=== PATIENT | female | born 2000 | race Two or more races ===

== ENCOUNTER 2022-07-13 11:19 | Inpatient (IN) ==
[2022-07-13 12:16] LABS: Basophils # (auto) 0.06 K/uL (0-0.2); Basophils % (auto) 0.3 %; Eosinophils # (auto) 0.01 K/uL (0-0.50); Eosinophils % (auto) 0.1 %; Hematocrit (blood only) 34.6 % (37.0-47.0); Hemoglobin 11.6 g/dl (12.0-16.0); Immature Granulocytes # (auto) 0.14 K/uL (0.01-0.20); Immature Granulocytes % (auto) 0.8 %; Lymphocytes # (auto) 1.26 K/uL (1.2-3.4); Lymphocytes % (auto) 7.1 %; Mean Corpuscular Hgb Conc 33.5 g/dL (32.0-36.0); Mean Corpuscular Volume 80.5 fL (80.0-100.0); Monocytes # (auto) 1.67 K/uL (0.11-0.59); Monocytes % (auto) 9.4 %; Neutrophils # (auto) 14.66 K/uL (1.40-6.50); Neutrophils % (auto) 82.3 %; Platelet Count 155 K/uL (130-400); RDW Coefficient of Variation 13.2 % (11.5-14.5); RDW Standard Deviation 38.5 fL (36.4-46.3)
[2022-07-13 12:23] LABS: Albumin Globulin Ratio 0.9 (0.9-2); Albumin Level 3.8 gm/dl (3.4-5.0); BUN Creatinine Ratio 13.9 (10-20); Bilirubin,Total 2.4 mg/dl (0.2-1.0); Calcium 9.2 mg/dl (8.5-10.1); Creatinine Clr Calc Pharmacy 62.8 ml/min; Est GFR (African American) 91.5 ml/min; Globulin 4.2 gm/dl (2.5-4.0); Potassium 3.5 mmol/L (3.5-5.1)
--- NOTE | 2022-07-13 13:22 | Emergency Department Note ---
History of Present Illness General Chief complaint: Nausea Stated complaint: NAUSEA, VOMITING, FEVER Time Seen by Provider: 07/13/22 13:20 History of Present Illness Maximum Pain Intensity: 7 This 21-year-old female patient presents to the emergency department with a male friend for evaluation of nausea, vomiting, and intermittent fever for the past week. She saw [facility] and tested negative for COVID, flu, and RSV and was given something for the nausea, but it is not working. Fevers up to 39 C max per patient. Has been taking Tylenol and Zofran for the symptoms . She has been having a dry intermittent cough. Denies chest pain. Having generalized abdominal pain as well rated as 7/10. Has some intermittent burning with urination and abnormal smell of her urine recently. Denies any diarrhea. No known ill contacts. Has had 3 COVID vaccines. No flu vaccines. Childhood immunizations are up to date. She was in [facility], [place], and [facility] over winter break. Home Medications Medication Instructions Recorded Confirmed Type No Known Home Medications 07/13/22 07/13/22 History Allergies Allergy/AdvReac Type Severity Reaction Status Date / Time No Known Allergies Allergy Verified 07/13/22 13:29 Past Med/Surg History Medical History No pertinent past medical history Surgical History No pertinent past surgical history Social History Smoking Status: Never smoker Hx Alcohol Use: No Hx Substance Use: No Preferred Language: Sinhala Communication Ability: Effective Battery [employer] Aluminum Required: No Beliefs That Will Affect Care: Cultural Cultural Beliefs: does not eat pork Current Living Situation: Other Current Living Situation Comment: student Other Information That Helps Us Care for You: No Feels Safe at Home: Yes Safety Concerns: Feels Safe At This Time Assistive Devices: Glasses Review of Systems See HPI for pertinent positives & negatives. Physical Exam Vital Signs Vital Signs - 24 hr 07/13/22 11:34 07/13/22 13:26 07/13/22 14:30 Temperature 36.7 C 37.9 C H Temperature Source Temporal Artery Scan Oral Pulse Rate 120 H 124 H Pulse Rate [Apical] 113 H Pulse Rhythm [Apical] Regular Pulse Strength [Apical] Normal Respiratory Rate 18 24 24 Respiratory Effort / Characteristics Non-Labored Respiratory Depth Normal Respiratory Pattern Regular Blood Pressure 119/85 Blood Pressure [Right Arm] 111/75 Blood Pressure Mean 96 Blood Pressure Mean [Right Arm] 87 Pulse Oximetry 97 98 Oxygen Delivery Method Room Air Room Air Sepsis Recent Fever Within 48 Hours No Sepsis New/Unexplained Change in Mental Status No Sepsis Action Taken by Nursing No Action Required 07/13/22 14:35 07/13/22 14:35 07/13/22 14:40 Temperature Temperature Source Pulse Rate 119 H 119 H Pulse Rate [Apical] Pulse Rhythm [Apical] Pulse Strength [Apical] Respiratory Rate 25 H 24 Respiratory Effort / Characteristics Respiratory Depth Respiratory Pattern Blood Pressure 116/80 Blood Pressure [Right Arm] Blood Pressure Mean 92 Blood Pressure Mean [Right Arm] Pulse Oximetry Oxygen Delivery Method Sepsis Recent Fever Within 48 Hours Sepsis New/Unexplained Change in Mental Status Sepsis Action Taken by Nursing 07/13/22 14:50 07/13/22 15:00 07/13/22 15:10 Temperature Temperature Source Pulse Rate 121 H 118 H 122 H Pulse Rate [Apical] Pulse Rhythm [Apical] Pulse Strength [Apical] Respiratory Rate 24 18 24 Respiratory Effort / Characteristics Respiratory Depth Respiratory Pattern Blood Pressure Blood Pressure [Right Arm] Blood Pressure Mean Blood Pressure Mean [Right Arm] Pulse Oximetry Oxygen Delivery Method Sepsis Recent Fever Within 48 Hours Sepsis New/Unexplained Change in Mental Status Sepsis Action Taken by Nursing 07/13/22 15:22 07/13/22 15:30 07/13/22 15:30 Temperature Temperature Source Pulse Rate 120 H 111 H Pulse Rate [Apical] Pulse Rhythm [Apical] Pulse Strength [Apical] Respiratory Rate 24 22 Respiratory Effort / Characteristics Respiratory Depth Respiratory Pattern Blood Pressure 109/78 Blood Pressure [Right Arm] Blood Pressure Mean 88 Blood Pressure Mean [Right Arm] Pulse Oximetry Oxygen Delivery Method Sepsis Recent Fever Within 48 Hours Sepsis New/Unexplained Change in Mental Status Sepsis Action Taken by Nursing 07/13/22 15:40 07/13/22 15:50 07/13/22 16:00 Temperature Temperature Source Pulse Rate 108 H 116 H 110 H Pulse Rate [Apical] Pulse Rhythm [Apical] Pulse Strength [Apical] Respiratory Rate 23 21 24 Respiratory Effort / Characteristics Respiratory Depth Respiratory Pattern Blood Pressure Blood Pressure [Right Arm] Blood Pressure Mean Blood Pressure Mean [Right Arm] Pulse Oximetry Oxygen Delivery Method Sepsis Recent Fever Within 48 Hours Sepsis New/Unexplained Change in Mental Status Sepsis Action Taken by Nursing 07/13/22 16:10 Temperature Temperature Source Pulse Rate 109 H Pulse Rate [Apical] Pulse Rhythm [Apical] Pulse Strength [Apical] Respiratory Rate 22 Respiratory Effort / Characteristics Respiratory Depth Respiratory Pattern Blood Pressure Blood Pressure [Right Arm] Blood Pressure Mean Blood Pressure Mean [Right Arm] Pulse Oximetry Oxygen Delivery Method Sepsis Recent Fever Within 48 Hours Sepsis New/Unexplained Change in Mental Status Sepsis Action Taken by Nursing Vital Signs: Vitals are noted on the nurse's note and reviewed by myself. GENERAL: Appears ill, but non toxic in appearance and in no acute distress. SKIN: The skin was without obvious rashes, erythema, edema, or bruising. Capillary reflex less than 2 seconds. HEAD: Normocephalic, atraumatic. EARS: External auditory canals clear, tympanic membrane pearly snowden without erythema or effusion. No tragus tenderness. No mastoid tenderness. EYES: Pupils equal round and reactive to light and accommodation. Conjunctivae without injection, sclerae without icterus. Extraocular movements intact. NOSE: Patent, turbinates inflamed with no discharge. No sinus tenderness. MOUTH: Tongue is dry, but other mucous membranes are still moist. Airway patent, uvula midline. Tonsils are not enlarged and not erythematous without exudate. Pharynx without postnasal drip. No evidence for peritonsillar abscess. NECK: Supple without nuchal rigidity. No lymphadenopathy. Negative Kernig and Brudzinski. HEART: Regular rate and rhythm without murmurs gallops or rubs. LUNGS: Clear to auscultation bilaterally without wheezes, rales or rhonchi. No accessory muscle use or retractions. ABDOMEN: Positive bowel sounds x 4. Normal tympanic percussion. Soft, diffusely tender to palpation, without masses or organomegaly. Positive CVA tenderness bilaterally. No focal right lower quadrant or left lower quadrant tenderness. No guarding, rebound tenderness, or rigidity. NEURO: Patient was alert and oriented to person place and time. Course Administered Medications Acetaminophen (Acetaminophen 325 Mg Tab) 650 mg PO Q4H PRN PRN Reason: Pain or fever Stop: 08/12/22 19:25 Last Admin: 07/13/22 19:51 Dose: 650 mg Documented By: ELAYNE Sodium Chloride (Nss 1000ml) 1,000 mls @ 125 mls/hr IV .Q8H DEREJE Stop: 07/14/22 19:08 Last Admin: 07/13/22 19:22 Dose: 125 mls/hr Documented By: ELAYNE Discontinued Medications Sodium Chloride (Nss 1000ml) 1,000 mls @ 999 mls/hr IV .Q1H1M ONE Stop: 07/13/22 14:47 Last Infusion: 07/13/22 15:30 Dose: 0 mls/hr Documented By: Admin: 07/13/22 14:00 Dose: 999 mls/hr Documented By: NELY Sodium Chloride (Nss 1000ml) 1,000 mls @ 999 mls/hr IV .Q1H1M ONE Stop: 07/13/22 15:50 Last Infusion: 07/13/22 16:20 Dose: 0 mls/hr Documented By: Admin: 07/13/22 15:15 Dose: 999 mls/hr Documented By: NELY Ceftriaxone Sodium 1,000 mg/ (Dextrose) 50 mls @ 100 mls/hr IV NOW STA Stop: 07/13/22 15:45 Last Infusion: 07/13/22 16:20 Dose: 0 mls/hr Documented By: Admin: 07/13/22 15:50 Dose: 100 mls/hr Documented By: NELY Ioversol (Optiray 350 100ml) 94 ml IV ONCE ONE Stop: 07/13/22 14:19 Last Admin: 07/13/22 14:18 Dose: 94 ml Documented By: YUVAL Ketorolac Tromethamine (Ketorolac Tromethamine 15 Mg/Ml Vial) 10 mg IV NOW ONE Stop: 07/13/22 13:48 Last Admin: 07/13/22 14:31 Dose: 10 mg Documented By: NELY Ondansetron HCl (Ondansetron Inj 2 Mg/Ml 2 Ml Vial) 4 mg IV NOW STA Stop: 07/13/22 13:48 Last Admin: 07/13/22 14:31 Dose: 4 mg Documented By: NELY Medical Decision Making Differential Diagnosis Differential diagnosis includes Influenza, RSV, COVID, viral syndrome, otitis media, otitis externa, pharyngitis, strep throat, pneumonia, meningitis, urinary tract infection, pyelonephritis, cellulitis, abscess, sepsis, bacteremia, as well as other pathologies. Laboratory Data Attestation: I reviewed the patient's lab results. 07/13/22 11:52 07/13/22 11:52 Lab Results 07/13/22 07/13/22 07/13/22 Range/Units 11:52 11:52 11:52 WBC 17.80 H (4.8-10.8) K/ul RBC 4.30 (4.20-5.40) M/uL Hgb 11.6 L (12.0-16.0) g/dl Hct 34.6 L (37.0-47.0) % MCV 80.5 (80.0-100.0) fL MCH 27.0 (25.0-34.0) pg MCHC 33.5 (32.0-36.0) g/dL RDW Std Deviation 38.5 (36.4-46.3) fL RDW Coeff of Amy 13.2 (11.5-14.5) % Plt Count 155 (130-400) K/uL MPV 11.0 (9.4-12.4) fL Immature Gran % (Auto) 0.8 % Neut % (Auto) 82.3 % Lymph % (Auto) 7.1 % [facility] % (Auto) 9.4 % Eos % (Auto) 0.1 % Baso % (Auto) 0.3 % Neut # (Auto) 14.66 H (1.40-6.50) K/uL Lymph # (Auto) 1.26 (1.2-3.4) K/uL [facility] # (Auto) 1.67 H (0.11-0.59) K/uL Eos # (Auto) 0.01 (0-0.50) K/uL Baso # (Auto) 0.06 (0-0.2) K/uL Immature Gran # (Auto) 0.14 (0.01-0.20) K/uL Sodium 130 L (136-145) mmol/L Potassium 3.5 (3.5-5.1) mmol/L Chloride 95 L (98-107) mmol/L Carbon Dioxide 26 (21-32) mmol/L Anion Gap 9 (3-11) BUN 14 (6-23) mg/dl Creatinine 1.01 (0.6-1.2) mg/dl Est Cr Clr Drug Dosing 62.8 ml/min Est GFR ( Amer) 91.5 ml/min Est GFR (Non-Af Amer) 79.0 ml/min BUN/Creatinine Ratio 13.9 (10-20) Glucose 125 H (70-99(Fasting)) mg/dl Lactate (0.4-2.0) mmol/L Calcium 9.2 (8.5-10.1) mg/dl Total Bilirubin 2.4 H (0.2-1.0) mg/dl Direct Bilirubin 1.0 H Cancelled (0-0.2) mg/dl AST 28 (13-39) U/L ALT 21 (7-52) U/L Alkaline Phosphatase 87 (34-104) U/L Total Protein 8.0 (6.0-8.3) gm/dl Albumin 3.8 (3.4-5.0) gm/dl Globulin 4.2 H (2.5-4.0) gm/dl Albumin/Globulin Ratio 0.9 (0.9-2) Lipase 54 (11-82) U/L Procalcitonin (0-0.5) ng/ml HCG, Qual (Negative) Urine Color Urine Appearance (Clear) Urine pH (4.5-7.5) Ur Specific [place] (1.000-1.030) Urine Protein (Negative) Urine Glucose (UA) (Negative) Urine Ketones (Negative) Urine Blood (Negative) Urine Nitrite (Negative) Urine Bilirubin (Negative) Urine Urobilinogen (Negative) Ur Leukocyte Esterase (Negative) Urine WBC (Auto) (0-5) /hpf Urine RBC (Auto) (0-4) /hpf U Hyaline Cast (Auto) (0-5) /lpf U Epithel Cells (Auto) (0-5) /lpf Urine Bacteria (Auto) (Negative) SARS-CoV-2, RNA, NAAT (NEGATIVE) 07/13/22 07/13/22 07/13/22 Range/Units 11:52 15:20 15:27 WBC (4.8-10.8) K/ul RBC (4.20-5.40) M/uL Hgb (12.0-16.0) g/dl Hct (37.0-47.0) % MCV (80.0-100.0) fL MCH (25.0-34.0) pg MCHC (32.0-36.0) g/dL RDW Std Deviation (36.4-46.3) fL RDW Coeff of Amy (11.5-14.5) % Plt Count (130-400) K/uL MPV (9.4-12.4) fL Immature Gran % (Auto) % Neut % (Auto) % Lymph % (Auto) % [facility] [place] [facility] % (Auto) % Eos % (Auto) % Baso % (Auto) % Neut # (Auto) (1.40-6.50) K/uL Lymph # (Auto) (1.2-3.4) K/uL [facility] [place] # (Auto) (0.11-0.59) K/uL Eos # (Auto) (0-0.50) K/uL Baso # (Auto) (0-0.2) K/uL Immature Gran # (Auto) (0.01-0.20) K/uL Sodium (136-145) mmol/L Potassium (3.5-5.1) mmol/L Chloride (98-107) mmol/L Carbon Dioxide (21-32) mmol/L Anion Gap (3-11) BUN (6-23) mg/dl Creatinine (0.6-1.2) mg/dl Est Cr Clr Drug Dosing ml/min Est GFR ( Amer) ml/min Est GFR (Non-Af Amer) ml/min BUN/Creatinine Ratio (10-20) Glucose (70-99(Fasting)) mg/dl Lactate (0.4-2.0) mmol/L Calcium (8.5-10.1) mg/dl Total Bilirubin (0.2-1.0) mg/dl Direct Bilirubin (0-0.2) mg/dl AST (13-39) U/L ALT (7-52) U/L Alkaline Phosphatase (34-104) U/L Total Protein (6.0-8.3) gm/dl Albumin (3.4-5.0) gm/dl Globulin (2.5-4.0) gm/dl Albumin/Globulin Ratio (0.9-2) Lipase (11-82) U/L Procalcitonin (0-0.5) ng/ml HCG, Qual Negative (Negative) Urine Color Yellow Urine Appearance Clear (Clear) Urine pH 6.0 (4.5-7.5) Ur Specific [place] > 1.045 H (1.000-1.030) Urine Protein 1+ H (Negative) Urine Glucose (UA) Negative (Negative) Urine Ketones Trace H (Negative) Urine Blood 1+ H (Negative) Urine Nitrite Positive A (Negative) Urine Bilirubin Negative (Negative) Urine Urobilinogen Positive H (Negative) Ur Leukocyte Esterase 1+ H (Negative) Urine WBC (Auto) >30 H (0-5) /hpf Urine RBC (Auto) 5-10 H (0-4) /hpf U Hyaline Cast (Auto) 0 (0-5) /lpf U Epithel Cells (Auto) 10-20 H (0-5) /lpf Urine Bacteria (Auto) 2+ H (Negative) SARS-CoV-2, RNA, NAAT NEGATIVE (NEGATIVE) 07/13/22 07/13/22 Range/Units 15:36 15:36 WBC (4.8-10.8) K/ul RBC (4.20-5.40) M/uL Hgb (12.0-16.0) g/dl Hct (37.0-47.0) % MCV (80.0-100.0) fL MCH (25.0-34.0) pg MCHC (32.0-36.0) g/dL RDW Std Deviation (36.4-46.3) fL RDW Coeff of Amy (11.5-14.5) % Plt Count (130-400) K/uL MPV (9.4-12.4) fL Immature Gran % (Auto) % Neut % (Auto) % Lymph % (Auto) % [facility] [place] [facility] % (Auto) % Eos % (Auto) % Baso % (Auto) % Neut # (Auto) (1.40-6.50) K/uL Lymph # (Auto) (1.2-3.4) K/uL [facility] [place] [facility] # (Auto) (0.11-0.59) K/uL Eos # (Auto) (0-0.50) K/uL Baso # (Auto) (0-0.2) K/uL Immature Gran # (Auto) (0.01-0.20) K/uL Sodium (136-145) mmol/L Potassium (3.5-5.1) mmol/L Chloride (98-107) mmol/L Carbon Dioxide (21-32) mmol/L Anion Gap (3-11) BUN (6-23) mg/dl Creatinine (0.6-1.2) mg/dl Est Cr Clr Drug Dosing ml/min Est GFR ( Amer) ml/min Est GFR (Non-Af Amer) ml/min BUN/Creatinine Ratio (10-20) Glucose (70-99(Fasting)) mg/dl Lactate 1.0 (0.4-2.0) mmol/L Calcium (8.5-10.1) mg/dl Total Bilirubin (0.2-1.0) mg/dl Direct Bilirubin (0-0.2) mg/dl AST (13-39) U/L ALT (7-52) U/L Alkaline Phosphatase (34-104) U/L Total Protein (6.0-8.3) gm/dl Albumin (3.4-5.0) gm/dl Globulin (2.5-4.0) gm/dl Albumin/Globulin Ratio (0.9-2) Lipase (11-82) U/L Procalcitonin 38.26 H (0-0.5) ng/ml HCG, Qual (Negative) Urine Color Urine Appearance (Clear) Urine pH (4.5-7.5) Ur Specific [place] (1.000-1.030) Urine Protein (Negative) Urine Glucose (UA) (Negative) Urine Ketones (Negative) Urine Blood (Negative) Urine Nitrite (Negative) Urine Bilirubin (Negative) Urine Urobilinogen (Negative) Ur Leukocyte Esterase (Negative) Urine WBC (Auto) (0-5) /hpf Urine RBC (Auto) (0-4) /hpf U Hyaline Cast (Auto) (0-5) /lpf U Epithel Cells (Auto) (0-5) /lpf Urine Bacteria (Auto) (Negative) SARS-CoV-2, RNA, NAAT (NEGATIVE) Imaging Data Radiologist's Impression: Abdomen/Pelvis CT 07/13/22 13:47 CT abd pelvis IV con only CLINICAL HISTORY: abdominal pain, N/V, fever TECHNIQUE: Helical axial images of the abdomen and pelvis were obtained and displayed. Automated dose lowering techniques and/or adjustment according to patient size were utilized for this exam. This exam was performed with intravenous contrast. CT DOSE: 266.49 mGy.cm COMPARISON: None available at the time of this dictation. FINDINGS: Lower chest: No acute abnormality. Liver: Hepatic steatosis is noted. Gallbladder and biliary tree: No calcified gallstones. Normal caliber wall. No intra- or extrahepatic biliary ductal dilation. Pancreas: Unremarkable, no focal lesions. Spleen: Unremarkable. Adrenals: Unremarkable. Kidneys and ureters: Wedge-shaped hypoenhancing lesions are seen in the left greater than right kidneys. Bladder: Unremarkable. Reproductive organs: A large right fat-containing adnexal lesion with some calcifications is seen compatible with dermoid cyst. A smaller lesion is seen on the left. Bowel: Unremarkable. Lymph nodes Retroperitoneal: Unremarkable. Pelvic: Unremarkable. Mesenteric: Subcentimeter lymph nodes are noted. Peritoneum: Normal. Vessels: Unremarkable. Abdominal wall: Unremarkable. Bones: Unremarkable. IMPRESSION: Wedge-shaped hypodensities in the bilateral kidneys are concerning for pyelonephritis. ACT 112: Negative or not required by law. Electronically signed by: Colt Teixeira M.D. 07/13/2022 3:02 PM Chest X-Ray 07/13/22 15:28 XR chest 1V portable HISTORY: cough, fever COMPARISON: None. FINDINGS: The lungs are clear. Cardiac silhouette is normal in size. No pleural effusions. No pneumothorax. IMPRESSION: No acute process. ACT 112: Negative or not required by law. Electronically signed by: Peterson Carter M.D. 07/13/2022 3:46 PM MDM Narrative I examined the patient. An IV lock was placed and labs were drawn. She was given Toradol 10 mg IV and Zofran 4 mg IV. She was given a total of 2 L normal saline solution bolus in the ER. Previous work-up at [facility] was unremarkable per patient and she was given Zofran without improvement at home. She is ill- appearing, but nontoxic in appearance on exam. She was tachycardic during her stay with improvement after the IV fluids, but not resolution of the tachycardia. Initially the patient was afebrile, but did develop a fever prior to admission. White blood cell count elevated at 17.80 with hemoglobin of 11.6. Sodium 130, glucose 125, total bilirubin 2.4, direct bilirubin 1.0. LFTs ot herwise normal. Lipase negative. Serum hCG negative. COVID was negative. Chest x-ray was interpreted by myself and read by radiology was negative for acute cardiopulmonary etiology. CT scan of the abdomen and pelvis was interpreted by myself and read by radiology as above and show wedge-shaped hypodensities in the bilateral kidneys which are concerning for pyelonephritis. The patient was finally able to give a urine sample and urinalysis appeared to show infection with culture pending. Bl ood cultures were drawn. She was given Rocephin 1 g IV. Lactate and procalcitonin levels were also drawn with a normal lactate, but elevated procalcitonin of 38.26. I spoke with the on-call hospitalist who agreed to admit the patient for further evaluation and treatment. Please refer to their dictation for further details. The patient's care was transferred in stable condition. Impression & Plan Acute pyelonephritis Discharge Plan Visit Data Chief Complaint: Nausea Stated Complaint: NAUSEA, VOMITING, FEVER ED Provider: Dusty Lopez ED Midlevel Provider: Abby Redman Discharge Problem: Acute pyelonephritis Patient Disposition: Admitted As Inpatient Condition: Good Discharge Instructions Interventions: ED Discharge Assessment Last Done: 07/13/22 18:22
[2022-07-13] MEDS ORDERED: KETOROLAC TROMETHAMINE 15 MG/ML VIAL IV ONE (13:47)
[2022-07-13] MEDS ORDERED: SODIUM CHLORIDE 0.9% 1000ML 1,000 ML IV ONE ×2 (13:47→14:50)
[2022-07-13] MEDS ORDERED: ONDANSETRON INJ 2 MG/ML 2 ML VIAL IV STA (13:47)
[2022-07-13] MEDS ORDERED: OPTIRAY 350 100ml IV ONE (14:18)
[2022-07-13 14:28] LABS: Pregnancy Test, Serum Negative (Negative)
--- NOTE | 2022-07-13 15:03 | CT Scan Report ---
CT abd pelvis IV con only CLINICAL HISTORY: abdominal pain, N/V, fever TECHNIQUE: Helical axial images of the abdomen and pelvis were obtained and displayed. Automated dose lowering techniques and/or adjustment according to patient size were utilized for this exam. This e xam was performed with intravenous contrast. CT DOSE: 266.49 mGy.cm COMPARISON: None available at the time of this dictation. FINDINGS: Lower chest: No acute abnormality. Liver: Hepatic steatosis is noted. Gallbladder and biliary tree: No calcified gallstones. Normal caliber wall. No intra- or extrahepatic biliary ductal dilation. Pancreas: Unremarkable, no focal lesions. Spleen: Unremarkable. Adrenals: Unremarkable. Kidneys and ureters: Wedge-shaped hypoenhancing lesions are seen in the left greater than right kidne ys. Bladder: Unremarkable. Reproductive organs: A large right fat-containing adnexal lesion with some calcifications is seen com patible with dermoid cyst. A smaller lesion is seen on the left. Bowel: Unremarkable. Lymph nodes Retroperitoneal: Unremarkable. Pelvic: Unremarkable. Mesenteric: Subcentimeter lymph nodes are noted. Peritoneum: Normal. Vessels: Unremarkable. Abdominal wall: Unremarkable. Bones: Unremarkable. IMPRESSION: Wedge-shaped hypodensities in the bilateral kidneys are concerning for pyelonephritis. ACT 112: Negative or not required by law. Electronically signed by: Colt Teixeira M.D. 07/13/2022 3:02 PM
[2022-07-13] MEDS ORDERED: cefTRIAXone SODIUM 1,000 MG in DEXTROSE 5% AD-VAN 50 ML IV STA (15:16)
[2022-07-13 15:37] LABS: Appearance Urine Clear (Clear); Bacteria Urine Automated 2+ (Negative); Bilirubin Urine Negative (Negative); Blood Urine 1+ (Negative); Cast Urine Automated 0 /lpf (0-5); Color Urine Yellow; Glucose Urine UA Negative (Negative); Ketones Urine Trace (Negative); Leukocyte Esterase Urine 1+ (Negative); Nitrite Urine Positive (Negative); Protein Urine 1+ (Negative); Specific Gravity Urine > 1.045 (1.000-1.030); Urobilinogen Urine Positive (Negative); WBC Urine Automated >30 /hpf (0-5)
--- NOTE | 2022-07-13 15:47 | XRay Report ---
XR chest 1V portable HISTORY: cough, fever COMPARISON: None. FINDINGS: The lungs are clear. Cardiac silhouette is normal in size. No pleural effusions. No pneumot horax. IMPRESSION: No acute process. ACT 112: Negative or not required by law. Electronically signed by: Peterson Carter M.D. 07/13/2022 3:46 PM
--- NOTE | 2022-07-13 16:06 | History & Physical Report ---
Date of Service July 13, 2022 Assessment & Plan (1) Acute pyelonephritis: Plan: Ceftriaxone 1g IV daily Follow up urine and blood cultures (2) Sepsis: Plan: Meeting SIRS criteria with temperature, heart rate and white blood count. Lactate 1.0 Plan VTE prophylaxis - low risk Diet - regular Disposition - admit to [facility] Admission and Anticipated Discharge Date Admission Date: July 13, 2022 History of Present Illness Chief Complaint: Nausea, vomiting, fever Primary Care Provider: [facility] Adamaris Blake is a 21-year-old female who presents to the ER with nausea, vomiting and fever for 1 week. She reports urine has been smelling different with associated bilateral back pain (generalized, severity 4/10, no radiation, no change with bowel movements). She denies any urine frequency or burning sensation. No pertinent past medical history. No frequent UTIs. No upper respiratory symptoms, abdominal pain or diarrhea. Allergies Allergy/AdvReac Type Severity Reaction Status Date / Time No Known Allergies Allergy Verified 07/13/22 13:29 Home Medications Medication Instructions Recorded Confirmed Type No Known Home Medications 07/13/22 07/13/22 History Past Med/Surg History Medical History No pertinent past medical history Surgical History No pertinent past surgical history Social History Smoking Status: Never smoker Hx Alcohol Use: No Hx Substance Use: No Preferred Language: Sudanese Communication Ability: Effective Breaker Oiler Required: No Beliefs That Will Affect Care: Cultural Cultural Beliefs: does not eat pork Current Living Situation: Other Current Living Situation Comment: student Other Information That Helps Us Care for You: No Feels Safe at Home: Yes Safety Concerns: Feels Safe At This Time Assistive Devices: Glasses Review of Systems Review of Systems: All systems reviewed & are unremarkable except as noted in HPI & below Physical Exam Constitutional: WD/WN, vitals as above ENMT: external ear and nose normal, oropharynx normal Respiratory: normal respiratory effort, lungs clear to auscultation Cardiovascular: Rate/Rhythm: regular rhythm and + tachycardic Gastrointestinal (Abdomen): normal bowel sounds, soft, nontender, no hepatosplenomegaly Skin: no rashes, warm and dry Genitourinary: + CVA tenderness (Bilateral) Results & Data Results & Data ([facility]) Vital Signs (Past 12 Hours) Vital Signs Temp Pulse Pulse Resp BP BP Pulse Ox 07/13/22 15:50 116 H 21 07/13/22 15:40 108 H 23 07/13/22 15:30 111 H 22 07/13/22 15:30 109/78 07/13/22 15:22 120 H 24 07/13/22 15:10 122 H 24 07/13/22 15:00 118 H 18 07/13/22 14:50 121 H 24 07/13/22 14:40 119 H 24 07/13/22 14:35 116/80 07/13/22 14:35 119 H 25 H 07/13/22 14:30 124 H 24 07/13/22 13:26 37.9 C H 113 H 24 111/75 98 07/13/22 11:34 36.7 C 120 H 18 119/85 97 O2 Del Method 07/13/22 15:50 07/13/22 15:40 07/13/22 15:30 07/13/22 15:30 07/13/22 15:22 07/13/22 15:10 07/13/22 15:00 07/13/22 14:50 07/13/22 14:40 07/13/22 14:35 07/13/22 14:35 07/13/22 14:30 07/13/22 13:26 Room Air 07/13/22 11:34 Room Air Laboratory Results Abnormal lab results 07/13/22 07/13/22 07/13/22 Range/Units 11:52 11:52 15:20 WBC 17.80 H (4.8-10.8) K/ul Hgb 11.6 L (12.0-16.0) g/dl Hct 34.6 L (37.0-47.0) % Neut # (Auto) 14.66 H (1.40-6.50) K/uL [place] # (Auto) 1.67 H (0.11-0.59) K/uL Sodium 130 L (136-145) mmol/L Chloride 95 L (98-107) mmol/L Glucose 125 H (70-99(Fasting)) mg/dl Total Bilirubin 2.4 H (0.2-1.0) mg/dl Direct Bilirubin 1.0 H (0-0.2) mg/dl Globulin 4.2 H (2.5-4.0) gm/dl Ur Specific [place] > 1.045 H (1.000-1.030) Urine Protein 1+ H (Negative) Urine Ketones Trace H (Negative) Urine Blood 1+ H (Negative) Urine Nitrite Positive A (Negative) Urine Urobilinogen Positive H (Negative) Ur Leukocyte Esterase 1+ H (Negative) Urine WBC (Auto) >30 H (0-5) /hpf Urine RBC (Auto) 5-10 H (0-4) /hpf U Epithel Cells (Auto) 10-20 H (0-5) /lpf Urine Bacteria (Auto) 2+ H (Negative) Diagnostic Findings XR chest 1V portable HISTORY: cough, fever COMPARISON: None. FINDINGS: The lungs are clear. Cardiac silhouette is normal in size. No pleural effusions. No pneumothorax. IMPRESSION: No acute process. CT abd pelvis IV con only CLINICAL HISTORY: abdominal pain, N/V, fever TECHNIQUE: Helical axial images of the abdomen and pelvis were obtained and displayed. Automated dose lowering techniques and/or adjustment according to patient size were utilized for this exam. This exam was performed with intravenous contrast. CT DOSE: 266.49 mGy.cm COMPARISON: None available at the time of this dictation. FINDINGS: Lower chest: No acute abnormality. Liver: Hepatic steatosis is noted. Gallbladder and biliary tree: No calcified gallstones. Normal caliber wall. No intra- or extrahepatic biliary ductal dilation. Pancreas: Unremarkable, no focal lesions. Spleen: Unremarkable. Adrenals: Unremarkable. Kidneys and ureters: Wedge-shaped hypoenhancing lesions are seen in the left greater than right kidneys. Bladder: Unremarkable. Reproductive organs: A large right fat-containing adnexal lesion with some calci fications is seen compatible with dermoid cyst. A smaller lesion is seen on the left. Bowel: Unremarkable. Lymph nodes Retroperitoneal: Unremarkable. Pelvic: Unremarkable. Mesenteric: Subcentimeter lymph nodes are noted. Peritoneum: Normal. Vessels: Unremarkable. Abdominal wall: Unremarkable. Bones: Unremarkable. IMPRESSION: Wedge-shaped hypodensities in the bilateral kidneys are concerning for pyelonephritis. Medications Administered ER medications given: NSS 1L bolus x2 Toradol 10mg IV Ceftriaxone 1000mg IV ECG Indication: tachycardia Rhythm: sinus tachycardia Findings: no acute ischemic change Comparison ECG Date: no prior available Code Status & VTE Plan Code Status Full VTE Prophylaxis Plan VTE Prophylaxis will be ordered: No PG Care Time/CCT Total # of Minutes Spent Total Time Spent with Patient: Total time spent is greater than 50% in coordination of care (as documented) at patient's floor/unit and/or counseling patient: Coding Level of Care Code 01015 INT INP/OBS CARE 2/55MIN Diagnoses Acute pyelonephritis N10 Sepsis A41.9
[2022-07-13] MEDS: SODIUM CHLORIDE 0.9% 1000ML 1,000 ML IV SCH (19:22)
[2022-07-13] MEDS: ACETAMINOPHEN 325 MG TAB PO PRN (19:51)
[2022-07-14] MEDS: SODIUM CHLORIDE 0.9% 1000ML 1,000 ML IV SCH ×2 (02:22→10:20)
[2022-07-14] MEDS: ONDANSETRON INJ 2 MG/ML 2 ML VIAL IV PRN ×2 (02:49→16:07)
[2022-07-14] MEDS: KETOROLAC TROMETHAMINE 15 MG/ML VIAL IV PRN ×2 (02:52→16:01)
[2022-07-14 04:45] LABS: A calco-baum cmplx NotReported Not Detected (NotDetected); Bact fragilis Not Reported Not Detected (NotDetected); C auris Not Reported Not Detected (NotDetected); CTX-M Resistant Gene Not Detected (NotDetected); Calbicans Not Reported Not Detected (NotDetected); Candida glabrata Not Reported Not Detected (NotDetected); Candida krusei Not Reported Not Detected (NotDetected); Cneoformans/gatti Not Reported Not Detected (NotDetected); Cparapsilosis Not Reported Not Detected (NotDetected); Ctropicalis Not Reported Not Detected (NotDetected); E cloacae compx Not Reported Not Detected (NotDetected); Efaecalis Not Reported Not Detected (NotDetected); Efaecium Not Reported Not Detected (NotDetected); Enterobacterales DETECTED (NotDetected); Enterobacterales Not Reported DETECTED (NotDetected); Escherichia coli Not Reported DETECTED (NotDetected); H influenzae Not Reported Not Detected (NotDetected); IMP Resistant Gene Not Detected (NotDetected); K aerogenes Not Reported Not Detected (NotDetected); KPC Resistant Gene Not Detected (NotDetected); Koxytoca Not Reported Not Detected (NotDetected); Kpneumoniae grp Not Reported Not Detected (NotDetected); Lmonocyt Not Reported Not Detected (NotDetected); N meningitidis Not Reported Not Detected (NotDetected); NDM Resistant Gene Not Detected (NotDetected); OXA 48 Like Resistant Gene Not Detected (NotDetected); P aeruginosa Not Reported Not Detected (NotDetected); Proteus spp Not Reported Not Detected (NotDetected); Salmonella spp Not Reported Not Detected (NotDetected); Smarcescens Not Reported Not Detected (NotDetected); Staph lugdunensis Not Reported Not Detected (NotDetected); Staph spp. Not Reported Not Detected (NotDetected); Staphaureus Not Reported Not Detected (NotDetected); Staphepi Not Reported Not Detected (NotDetected); Stenmaltophilia Not Reported Not Detected (NotDetected); Strep agal(GrpB) Not Reported Not Detected (NotDetected); Strep pneum Not Reported Not Detected (NotDetected); Strep pyog (GrpA) Not Reported Not Detected (NotDetected); Strep spp Not Reported Not Detected (NotDetected); VIM Resistant Gene Not Detected (NotDetected); mcr-1 Colistin Resistant Gene Not Detected (NotDetected)
[2022-07-14] MEDS: ACETAMINOPHEN 325 MG TAB PO PRN ×2 (07:41→22:34)
[2022-07-14 07:46] LABS: Potassium 3.6 mmol/L (3.5-5.1)
[2022-07-14 07:52] LABS: Acanthocytes 1+; BUN Creatinine Ratio 11.1 (10-20); Basophils # (auto) 0.02 K/uL (0-0.2); Basophils % (auto) 0.2 %; Creatinine Clr Calc Pharmacy 78.3 ml/min; Dohle Bodies 1+; Echinocytes 1+; Est GFR (African American) 119.5 ml/min; Est GFR (Non-African American) 103.1 ml/min; Hematocrit (blood only) 26.5 % (37.0-47.0); Hemoglobin 8.8 g/dl (12.0-16.0); Immature Granulocytes # (auto) 0.21 K/uL (0.01-0.20); Immature Granulocytes % (auto) 1.7 %; Lymphocytes # (auto) 1.04 K/uL (1.2-3.4); Lymphocytes % (auto) 8.2 %; Mean Corpuscular Hemoglobin 27.4 pg (25.0-34.0); Mean Corpuscular Hgb Conc 33.2 g/dL (32.0-36.0); Mean Corpuscular Volume 82.6 fL (80.0-100.0); Mean Platelet Volume 11.5 fL (9.4-12.4); Monocytes # (auto) 0.95 K/uL (0.11-0.59); Monocytes % (auto) 7.5 %; Neutrophils # (auto) 10.45 K/uL (1.40-6.50); Neutrophils % (auto) 82.4 %; Platelet Count 114 K/uL (130-400); Polychromasia 1+; RDW Coefficient of Variation 13.5 % (11.5-14.5); RDW Standard Deviation 41.1 fL (36.4-46.3); Red Blood Count 3.21 M/uL (4.20-5.40); Toxic Granulation 1+; White Blood Count 12.67 K/ul (4.8-10.8)
[2022-07-14] MEDS ORDERED: cefTRIAXone SODIUM 1,000 MG in DEXTROSE 5% AD-VAN 50 ML IV ONE (08:45)
[2022-07-14] MEDS ORDERED: cefTRIAXone SODIUM 1,000 MG in DEXTROSE 5% AD-VAN 50 ML IV SCH (09:00)
[2022-07-14] MEDS ORDERED: MoRPHine SULFATE 2 MG/ML CARP IV PRN (10:12)
--- NOTE | 2022-07-14 10:28 | Hospitalist Progress Note ---
Date of Service July 14, 2022 Assessment & Plan (1) Acute pyelonephritis: Plan: Ceftriaxone 2g IV daily Follow up urine and blood cultures Tylenol 650mg q 6 hours Morphine sulfate 1mg q 4hours prn Toradol 15mg (2) Sepsis: Plan: Meets SIRS criteria with temperature, heart rate and white blood count. Lactate 1.0 Started IV ceftriaxone Repeat AM labs (3) Hyperbilirubinemia: Plan: - Repeat LFTs in the AM Plan VTE prophylaxis - low risk Diet - regular Disposition - admit to [facility] up and out of bed Admission and Anticipated Discharge Date Admission Date: July 13, 2022 Subjective Patient was awake in bed. She states she is still having abdominal pain. She denies any urinary symptoms. She states the pain is mainly in the left mid abdomen and is sharp in nature without radiation. She admits to some Nausea and one episode of vomiting last night. She also had one loose brown BM last night as well. She denies any increasing or decreasing factors to the pain. She states her menstrual cycle is regular and LMP was 2 weeks ago. Urine Hcg negative, CTAP revealed bilateral hydronephrosis. Hepatic steatosis, no intra or extrahepatic ductal dilation. Review of Systems Constitutional: + fever, + chills and + fatigue; no weight loss and no weight gain Ear, Nose, Mouth, Throat: no nasal congestion, no nasal discharge and no post nasal drip Respiratory: no cough, no chest congestion and no dyspnea Cardiovascular: no chest pain, no dyspnea and no syncope Gastrointestinal: + abdominal pain, + nausea, + vomiting and + diarrhea/loose stools; no constipation and no blood in stools Genitourinary: no dysuria, no difficulty urinating, no urinary frequency and no urinary hesitancy Integumentary: no rash, no lesions and no new lesions Neurologic: no gait abnormality, no falls, no loss of sensation and no syncope Psychiatric: no hopelessness, no change in appetite and no panic attacks Physical Exam Constitutional: well nourished, + ill appearing, + well hydrated, cooperative and + overweight Neck: trachea midline, no thyromegaly Respiratory: normal respiratory effort, lungs clear to auscultation Cardiovascular: RRR, no murmur, no edema Gastrointestinal (Abdomen): Inspection/Auscultation: + abdomen distended and normal bowel sounds; no abdominal surgical scar Percussion/Palpation: + abdomen tender and abdomen soft; no hepatosplenomegaly tender to palpation over entire abdomen, No R/R/G +CVA tenderness bilaterally Skin: no rashes, warm and dry Neurologic: patellar DTR's 2+ bilat, sensation intact and PERRL, EOMI, accommodation nl, no face palsy, no dysarthria Psychiatric: A+Ox3, euthymic affect Results & Data Results & Data ([facility]) Vital Signs (Past 12 Hours) Vital Signs Temp Pulse Resp BP Pulse Ox O2 Del Method 07/14/22 09:30 37.7 C H 113 H 16 99/64 L 95 Room Air 07/14/22 08:20 39.2 C H 123 H 16 97/56 L 99 Room Air 07/14/22 07:12 37.4 C 116 H 16 105/66 98 Room Air 07/14/22 01:46 36.9 C Laboratory Results Abnormal lab results 07/13/22 07/13/22 07/13/22 Range/Units 11:52 11:52 15:20 WBC 17.80 H (4.8-10.8) K/ul RBC (4.20-5.40) M/uL Hgb 11.6 L (12.0-16.0) g/dl Hct 34.6 L (37.0-47.0) % Plt Count (130-400) K/uL Neut # (Auto) 14.66 H (1.40-6.50) K/uL Lymph # (Auto) (1.2-3.4) K/uL [place] # (Auto) 1.67 H (0.11-0.59) K/uL Immature Gran # (Auto) (0.01-0.20) K/uL Sodium 130 L (136-145) mmol/L Chloride 95 L (98-107) mmol/L Glucose 125 H (70-99(Fasting)) mg/dl Calcium (8.5-10.1) mg/dl Total Bilirubin 2.4 H (0.2-1.0) mg/dl Direct Bilirubin 1.0 H (0-0.2) mg/dl Globulin 4.2 H (2.5-4.0) gm/dl Procalcitonin (0-0.5) ng/ml Ur Specific [place] > 1.045 H (1.000-1.030) Urine Protein 1+ H (Negative) Urine Ketones Trace H (Negative) Urine Blood 1+ H (Negative) Urine Nitrite Positive A (Negative) Urine Urobilinogen Positive H (Negative) Ur Leukocyte Esterase 1+ H (Negative) Urine WBC (Auto) >30 H (0-5) /hpf Urine RBC (Auto) 5-10 H (0-4) /hpf U Epithel Cells (Auto) 10-20 H (0-5) /lpf Urine Bacteria (Auto) 2+ H (Negative) Enterobacterales (PCR) (NotDetected) E. coli (PCR) (NotDetected) 07/13/22 07/13/22 07/14/22 Range/Units 15:36 15:36 06:50 WBC 12.67 H (4.8-10.8) K/ul RBC 3.21 L (4.20-5.40) M/uL Hgb 8.8 L (12.0-16.0) g/dl Hct 26.5 L (37.0-47.0) % Plt Count 114 L (130-400) K/uL Neut # (Auto) 10.45 H (1.40-6.50) K/uL Lymph # (Auto) 1.04 L (1.2-3.4) K/uL [place] # (Auto) 0.95 H (0.11-0.59) K/uL Immature Gran # (Auto) 0.21 H (0.01-0.20) K/uL Sodium (136-145) mmol/L Chloride (98-107) mmol/L Glucose (70-99(Fasting)) mg/dl Calcium (8.5-10.1) mg/dl Total Bilirubin (0.2-1.0) mg/dl Direct Bilirubin (0-0.2) mg/dl Globulin (2.5-4.0) gm/dl Procalcitonin 38.26 H (0-0.5) ng/ml Ur Specific [place] (1.000-1.030) Urine Protein (Negative) Urine Ketones (Negative) Urine Blood (Negative) Urine Nitrite (Negative) Urine Urobilinogen (Negative) Ur Leukocyte Esterase (Negative) Urine WBC (Auto) (0-5) /hpf Urine RBC (Auto) (0-4) /hpf U Epithel Cells (Auto) (0-5) /lpf Urine Bacteria (Auto) (Negative) Enterobacterales (PCR) DETECTED A (NotDetected) E. coli (PCR) DETECTED A (NotDetected) 07/14/22 Range/Units 06:50 WBC (4.8-10.8) K/ul RBC (4.20-5.40) M/uL Hgb (12.0-16.0) g/dl Hct (37.0-47.0) % Plt Count (130-400) K/uL Neut # (Auto) (1.40-6.50) K/uL Lymph # (Auto) (1.2-3.4) K/uL [place] # (Auto) (0.11-0.59) K/uL Immature Gran # (Auto) (0.01-0.20) K/uL Sodium 135 L (136-145) mmol/L Chloride (98-107) mmol/L Glucose 103 H (70-99(Fasting)) mg/dl Calcium 8.0 L (8.5-10.1) mg/dl Total Bilirubin (0.2-1.0) mg/dl Direct Bilirubin (0-0.2) mg/dl Globulin (2.5-4.0) gm/dl Procalcitonin (0-0.5) ng/ml Ur Specific [place] (1.000-1.030) Urine Protein (Negative) Urine Ketones (Negative) Urine Blood (Negative) Urine Nitrite (Negative) Urine Urobilinogen (Negative) Ur Leukocyte Esterase (Negative) Urine WBC (Auto) (0-5) /hpf Urine RBC (Auto) (0-4) /hpf U Epithel Cells (Auto) (0-5) /lpf Urine Bacteria (Auto) (Negative) Enterobacterales (PCR) (NotDetected) E. coli (PCR) (NotDetected) Diagnostic Findings Abdomen/Pelvis CT 07/13/22 13:47 CT abd pelvis IV con only CLINICAL HISTORY: abdominal pain, N/V, fever TECHNIQUE: Helical axial images of the abdomen and pelvis were obtained and displayed. Automated dose lowering techniques and/or adjustment according to patient size were utilized for this exam. This exam was performed with intravenous contrast. CT DOSE: 266.49 mGy.cm COMPARISON: None available at the time of this dictation. FINDINGS: Lower chest: No acute abnormality. Liver: Hepatic steatosis is noted. Gallbladder and biliary tree: No calcified gallstones. Normal caliber wall. No intra- or extrahepatic biliary ductal dilation. Pancreas: Unremarkable, no focal lesions. Spleen: Unremarkable. Adrenals: Unremarkable. Kidneys and ureters: Wedge-shaped hypoenhancing lesions are seen in the left greater than right kidneys. Bladder: Unremarkable. Reproductive organs: A large right fat-containing adnexal lesion with some calcifications is seen compatible with dermoid cyst. A smaller lesion is seen on the left. Bowel: Unremarkable. Lymph nodes Retroperitoneal: Unremarkable. Pelvic: Unremarkable. Mesenteric: Subcentimeter lymph nodes are noted. Peritoneum: Normal. Vessels: Unremarkable. Abdominal wall: Unremarkable. Bones: Unremarkable. IMPRESSION: Wedge-shaped hypodensities in the bilateral kidneys are concerning for pyelonephritis. ACT 112: Negative or not required by law. Electronically signed by: Colt Teixeira M.D. 07/13/2022 3:02 PM Chest X-Ray 07/13/22 15:28 XR chest 1V portable HISTORY: cough, fever COMPARISON: None. FINDINGS: The lungs are clear. Cardiac silhouette is normal in size. No pleural effusions. No pneumothorax. IMPRESSION: No acute process. ACT 112: Negative or not required by law. Electronically signed by: Peterson Carter M.D. 07/13/2022 3:46 PM PG Care Time/CCT Total # of Minutes Spent Total Time Spent with Patient: Total time spent is greater than 50% in coordination of care (as documented) at patient's floor/unit and/or counseling patient: Coding Level of Care Code 43126 SUB INP/OBS CARE 2/35MIN Diagnoses Acute pyelonephritis N10 Sepsis A41.9 Hyperbilirubinemia E80.6
--- NOTE | 2022-07-14 15:09 | Electrocardiogram Report ---
Test Reason : Blood Pressure : / mmHG Vent. Rate : 110 BPM Atrial Rate : 110 BPM P-R Int : 146 ms QRS Dur : 068 ms QT Int : 304 ms P-R-T Axes : 063 050 042 degrees QTc Int : 411 ms Sinus tachycardia Otherwise normal ECG No previous ECGs available Confirmed by Cyrus Jackman ([id number]) on 07/14/2022 3:09:05 PM Referred By: REFERRED SELF Confirmed By:Bryan Jackman
--- NOTE | 2022-07-14 17:12 | XRay Report ---
XR chest 2V PA/lateral CLINICAL HISTORY: Cough. COMPARISON STUDY: Chest radiograph July 13, 2022. FINDINGS: Lung volumes are mildly diminished. There is no pneumothorax. A small left pleural effusion is noted. There is left basilar opacity. There has been interval development of interstitial thicken ing consistent with pulmonary edema. Cardiomediastinal silhouette is unremarkable. IMPRESSION: 1. Interval development of moderate interstitial pulmonary edema. 2. Small left pleural effusion. Left basilar opacity which likely reflect pulmonary edema or atelecta sis. Superimposed pneumonia could appear similar. ACT 112: Negative or not required by law. Electronically signed by: Caio Aparicio M.D. 07/14/2022 5:10 PM
[2022-07-14 17:40] LABS: Hematocrit (blood only) 24.1 % (37.0-47.0); Mean Corpuscular Hemoglobin 26.9 pg (25.0-34.0); Mean Corpuscular Hgb Conc 33.2 g/dL (32.0-36.0); Mean Corpuscular Volume 81.1 fL (80.0-100.0); Mean Platelet Volume 11.9 fL (9.4-12.4); Platelet Count 145 K/uL (130-400); RDW Coefficient of Variation 13.8 % (11.5-14.5); Red Blood Count 2.97 M/uL (4.20-5.40); White Blood Count 12.03 K/ul (4.8-10.8)
[2022-07-14 18:14] LABS: Albumin Level 2.6 gm/dl (3.4-5.0); Bilirubin Direct 0.4 mg/dl (0-0.2); Bilirubin,Total 1.2 mg/dl (0.2-1.0); Total Protein 5.4 gm/dl (6.0-8.3)
[2022-07-15 06:04] LABS: Basophils # (auto) 0.04 K/uL (0-0.2); Basophils % (auto) 0.3 %; Eosinophils # (auto) 0.02 K/uL (0-0.50); Eosinophils % (auto) 0.1 %; Hematocrit (blood only) 27.2 % (37.0-47.0); Hemoglobin 8.9 g/dl (12.0-16.0); Immature Granulocytes # (auto) 0.27 K/uL (0.01-0.20); Lymphocytes # (auto) 1.86 K/uL (1.2-3.4); Lymphocytes % (auto) 13.7 %; Mean Corpuscular Hemoglobin 27.1 pg (25.0-34.0); Mean Corpuscular Hgb Conc 32.7 g/dL (32.0-36.0); Mean Corpuscular Volume 82.7 fL (80.0-100.0); Mean Platelet Volume 11.6 fL (9.4-12.4); Monocytes # (auto) 0.95 K/uL (0.11-0.59); Neutrophils # (auto) 10.41 K/uL (1.40-6.50); Neutrophils % (auto) 76.9 %; Platelet Count 181 K/uL (130-400); RDW Standard Deviation 41.9 fL (36.4-46.3); Red Blood Count 3.29 M/uL (4.20-5.40); White Blood Count 13.55 K/ul (4.8-10.8)
[2022-07-15 06:42] LABS: Albumin Level 2.8 gm/dl (3.4-5.0); Bilirubin Direct 0.5 mg/dl (0-0.2); Bilirubin,Total 1.3 mg/dl (0.2-1.0); Calcium 8.1 mg/dl (8.5-10.1); Potassium 3.3 mmol/L (3.5-5.1)
[2022-07-15 06:48] LABS: Creatinine Clr Calc Pharmacy 84.5 ml/min; Est GFR (African American) 131.1 ml/min; Est GFR (Non-African American) 113.1 ml/min
[2022-07-15] MEDS: ACETAMINOPHEN 325 MG TAB PO PRN (07:16)
[2022-07-15] MEDS: cefTRIAXone SODIUM 2,000 MG in DEXTROSE 5% 50 ML IV SCH (07:16)
--- NOTE | 2022-07-15 08:01 | Hospitalist Progress Note ---
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 Patient was evaluated at [facility] and was rx Zofran. Patient states the zofran helped with the nausea and vomiting but she continued to have dysuria and then began to have severe stabbing abdominal pain and decided to come to [facility] ER. CTAP revealed changes of pyelonephritis along with incidental large right ovarian dermoid cyst, and hepatic steatosis. - Ceftriaxone 2g IV daily - Follow up urine and blood cultures - Repeat u/a and culture - Tylenol 650mg po q 4 hours prn - Morphine sulfate 1mg q 4hours prn - Toradol 15mg prn - Place Cintron catheter and bladder scan prior - Renal ultrasound revealed changes c/w pyelonephritis, trace pleural effusions and 6cm right ovarian dermoid (2) Sepsis: Plan: - Meets SIRS criteria with temperature, heart rate and white blood count. - Lactate 0.8 (1.0) - CRP 27.98 - Procalcitonin 21.31 (38.26) - Continue IV ceftriaxone 2gm - Tylenol 650 q 4 hours as needed - Continue to monitor vitals and labs - IVF NSS at 150/hr (3) Pulmonary edema: Plan: - Bladder scan - Place Cintron - Measure I&O (4) Hyperbilirubinemia: Plan: - improving from admission but slight increase from yesterday - RUQ U/S revealed contracted gallbladder containing sludge with normal CBD - Hepatic steatosis on CTAP - Discussed diet and weight loss (5) Dermoid cyst of right ovary: Plan: - Spoke with [facility] gynecology Dr Varghese Venegas (group who is collections curator for unassigned gyne) who stated patient will need outpatient follow up after discharged from the hospital. - Advised patient of the 6cm right ovarian dermoid cyst seen on CTAP and U/S, discussed need for gynecology evaluation as outpatient. Plan VTE prophylaxis - low risk but higher with current illness/sepsis Treat with Lovenox 40 in AM Diet - regular Disposition - admit to [facility] Encourage up and out of bed, incentive spirometry Admission and Anticipated Discharge Date Admission Date: July 13, 2022 Supervising Physician Co-Signing Physician Notes During face to face encounter, I obtained a physical exam and history of her symptoms. 21 yo female who is admitted with urosepsis with gram negative bacteremia Patient is extremely ill as this infection has likely been brewing for some time. Thankfully patient is very young which is helping her compensate. She is tachycardic and remains with an elevated WBC. Blood pressure is normal. Patient lactic acid also remains normal. Given that patient required some supplemental oxygen, and changes in her x ray, there was concern that patient may not be voiding. Resumed IVF, continue IV antibiotics. Will monitor her vitals closely. Anticipate she will continue to improve, will in Medical, However, if her fever curve does not improve, or HR remains in the 120s, will then transfer to a [facility] medical unit. For now will order Renal ultrasound to confirm no abscess. I agree with above note except for what I have documented. Subjective Patient is awake in bed, friend is at bedside. She states she feels slightly better today compared to yesterday. She still is having the abdominal pain worse in the left mid abdomen. She denies any BM since admission. She has a Cintron in place. She has no further nausea and has not had to have any Zofran today. She is saturating at 93% on RA and denies any further coughing. She is tolerating a regular diet. Review of Systems Constitutional: + fever, + chills and + fatigue; no weight loss and no weight gain Ear, Nose, Mouth, Throat: no nasal congestion, no nasal discharge and no post nasal drip Respiratory: no chest congestion, no dyspnea and no pain on inspiration Cardiovascular: no chest pain, no dyspnea and no syncope Gastrointestinal: + abdominal pain; no nausea, no vomiting, no constipation, no diarrhea/loose stools and no blood in stools Genitourinary: no dysuria, no difficulty urinating, no urinary frequency and no urinary hesitancy Had dysuria last week Integumentary: no rash, no lesions and no new lesions Neurologic: no gait abnormality, no falls, no loss of sensation and no syncope Psychiatric: no hopelessness, no change in appetite and no panic attacks Physical Exam Constitutional: well nourished, + ill appearing, + well hydrated and cooperative Neck: trachea midline, no thyromegaly Respiratory: normal respiratory effort, lungs clear to auscultation Cardiovascular: RRR, no murmur, no edema Gastrointestinal (Abdomen): Inspection/Auscultation: + abdomen distended and normal bowel sounds; no abdominal surgical scar Percussion/Palpation: + abdomen tender and abdomen soft; no hepatosplenomegaly + CVA tenderness on right pain to palpation left mid abdomen, no R/R/G Skin: no rashes, warm and dry Neurologic: patellar DTR's 2+ bilat, sensation intact and PERRL, EOMI, accommodation nl, no face palsy, no dysarthria Psychiatric: A+Ox3, euthymic affect Results & Data Results & Data ([facility]) Vital Signs (Past 12 Hours) Vital Signs Temp Pulse Resp BP Pulse Ox O2 Del Method 07/15/22 07:07 39.5 C H 129 H 16 122/78 93 Room Air 07/15/22 01:02 37.3 C 98 H 18 100/66 94 Room Air 07/14/22 23:19 39.0 C H 07/14/22 22:22 39.5 C H 120 H 18 115/80 93 Room Air Laboratory Results Abnormal lab results 07/14/22 07/14/22 07/15/22 Range/Units 17:19 17:19 05:32 WBC 12.03 H 13.55 H (4.8-10.8) K/ul RBC 2.97 L 3.29 L (4.20-5.40) M/uL Hgb 8.0 L 8.9 L (12.0-16.0) g/dl Hct 24.1 L 27.2 L (37.0-47.0) % Neut # (Auto) 10.41 H (1.40-6.50) K/uL [place] # (Auto) 0.95 H (0.11-0.59) K/uL Immature Gran # (Auto) 0.27 H (0.01-0.20) K/uL Sodium (136-145) mmol/L Potassium (3.5-5.1) mmol/L Calcium (8.5-10.1) mg/dl Total Bilirubin 1.2 H (0.2-1.0) mg/dl Direct Bilirubin 0.4 H (0-0.2) mg/dl Total Protein 5.4 L D (6.0-8.3) gm/dl Albumin 2.6 L (3.4-5.0) gm/dl 07/15/22 Range/Units 05:32 WBC (4.8-10.8) K/ul RBC (4.20-5.40) M/uL Hgb (12.0-16.0) g/dl Hct (37.0-47.0) % Neut # (Auto) (1.40-6.50) K/uL [place] # (Auto) (0.11-0.59) K/uL Immature Gran # (Auto) (0.01-0.20) K/uL Sodium 135 L (136-145) mmol/L Potassium 3.3 L (3.5-5.1) mmol/L Calcium 8.1 L (8.5-10.1) mg/dl Total Bilirubin 1.3 H (0.2-1.0) mg/dl Direct Bilirubin 0.5 H (0-0.2) mg/dl Total Protein (6.0-8.3) gm/dl Albumin 2.8 L (3.4-5.0) gm/dl Diagnostic Findings Chest X-Ray 07/14/22 16:43 XR chest 2V PA/lateral CLINICAL HISTORY: Cough. COMPARISON STUDY: Chest radiograph July 13, 2022. FINDINGS: Lung volumes are mildly diminished. There is no pneumothorax. A small left pleural effusion is noted. There is left basilar opacity. There has been interval development of interstitial thickening consistent with pulmonary edema. Cardiomediastinal silhouette is unremarkable. IMPRESSION: 1. Interval development of moderate interstitial pulmonary edema. 2. Small left pleural effusion. Left basilar opacity which likely reflect pulmonary edema or atelectasis. Superimposed pneumonia could appear similar. ACT 112: Negative or not required by law. Electronically signed by: Caio Aparicio M.D. ABDOMINAL ULTRASOUND, RIGHT UPPER QUADRANT HISTORY: elevated bilirubin. COMPARISON: Abdomen and pelvis CT 07/13/2022. FINDINGS: Pancreas: The pancreas demonstrates a normal echotexture. Liver: A 2.3 cm hyperechoic focus within the left hepatic lobe adjacent to the falciform ligament consistent with an area of focal fat. No hepatic masses. Gallbladder: The gallbladder is contracted. No gallbladder wall thickening. There is sludge within the gallbladder. No gallstones. CBD: 3 mm. Right kidney: No hydronephrosis. IMPRESSION: 1. Contracted gallbladder containing sludge. 2. Normal caliber common bile duct. RENAL ULTRASOUND HISTORY: pyelonephritis COMPARISON: Abdomen and pelvis CT 07/13/2022. FINDINGS: Right kidney: 10.6 cm. No hydronephrosis. Patchy areas of increased echogenicity consistent with a pyelonephritis. Left kidney: 12.3 cm. No hydronephrosis. Patchy areas of increased echogenicity most pronounced within the lower pole consistent with a pyelonephritis. No abscess identified at this time. Bladder: Decompressed by Cintron catheter. Miscellaneous: Trace bilateral pleural effusions are noted. Fat-containing 6 cm right ovarian lesion consistent with the patient's known ovarian dermoid IMPRESSION: 1. Patchy areas of increased echogenicity within the kidneys consistent with a pyelonephritis. 2. Trace bilateral pleural effusions. 3. A 6 cm right ovarian dermoid again noted. PG Care Time/CCT Total # of Minutes Spent Total Time Spent with Patient: Total time spent is greater than 50% in coordination of care (as documented) at patient's floor/unit and/or counseling patient: Coding Level of Care Code 22437 SUB INP/OBS CARE 3/50MIN Diagnoses Acute pyelonephritis N10 Sepsis A41.9 Pulmonary edema J81.1 Hyperbilirubinemia E80.6 Dermoid cyst of right ovary D27.0
[2022-07-15] MEDS ORDERED: ACETAMINOPHEN 325 MG TAB PO PRN (08:08)
[2022-07-15] MEDS: SODIUM CHLORIDE 0.9% 500 ML IV SCH ×3 (08:16→14:57)
[2022-07-15 08:49] LABS: Appearance Urine Clear (Clear); Bacteria Urine Automated Negative (Negative); Bilirubin Urine Negative (Negative); Blood Urine Negative (Negative); Color Urine Dark Yellow; Epithelial Cell Urine Auto >30 /lpf (0-5); Glucose Urine UA Negative (Negative); Ketones Urine 2+ (Negative); Leukocyte Esterase Urine Trace (Negative); Nitrite Urine Negative (Negative); Protein Urine 1+ (Negative); Specific Gravity Urine 1.016 (1.000-1.030); Urobilinogen Urine Positive (Negative)
[2022-07-15 09:05] LABS: Renal Epithelial Cells Urine 0-5 /lpf (0-5)
[2022-07-15] MEDS ORDERED: POTASSIUM CHLORIDE CRTAB 20 MEQ TABCR PO STA (09:29)
[2022-07-15] MEDS ORDERED: ENOXAPARIN INJ 40 MG/0.4 ML SYR SQ ONE (09:50)
--- NOTE | 2022-07-15 10:36 | Ultrasound Report ---
ABDOMINAL ULTRASOUND, RIGHT UPPER QUADRANT HISTORY: elevated bilirubin. COMPARISON: Abdomen and pelvis CT 07/13/2022. FINDINGS: Pancreas: The pancreas demonstrates a normal echotexture. Liver: A 2.3 cm hyperechoic focus within the left hepatic lobe adjacent to the falciform ligament con sistent with an area of focal fat. No hepatic masses. Gallbladder: The gallbladder is contracted. No gallbladder wall thickening. There is sludge within th e gallbladder. No gallstones. CBD: 3 mm. Right kidney: No hydronephrosis. IMPRESSION: 1. Contracted gallbladder containing sludge. 2. Normal caliber common bile duct. ACT 112: Negative or not required by law. Electronically signed by: Peterson Carter M.D. 07/15/2022 10:35 AM
--- NOTE | 2022-07-15 10:43 | Ultrasound Report ---
RENAL ULTRASOUND HISTORY: pyelonephritis COMPARISON: Abdomen and pelvis CT 07/13/2022. FINDINGS: Right kidney: 10.6 cm. No hydronephrosis. Patchy areas of increased echogenicity consistent with a py elonephritis. Left kidney: 12.3 cm. No hydronephrosis. Patchy areas of increased echogenicity most pronounced withi n the lower pole consistent with a pyelonephritis. No abscess identified at this time. Bladder: Decompressed by Cintron catheter. Miscellaneous: Trace bilateral pleural effusions are noted. Fat-containing 6 cm right ovarian lesion consistent with the patient's known ovarian dermoid IMPRESSION: 1. Patchy areas of increased echogenicity within the kidneys consistent with a pyelonephritis. 2. Trace bilateral pleural effusions. 3. A 6 cm right ovarian dermoid again noted. ACT 112: Negative or not required by law. Electronically signed by: Peterson Carter M.D. 07/15/2022 10:41 AM
[2022-07-15] MEDS ORDERED: ACETAMINOPHEN 10MG/ML Custom 1,000 MG in EMPTY BAG 0 ML IV SCH (14:00)
[2022-07-15] MEDS: POTASSIUM CHLORIDE CRTAB 20 MEQ TABCR PO SCH ×2 (14:13→20:51)
[2022-07-15] MEDS ORDERED: Nursing to Pharmacy Communication SCH (14:45)
[2022-07-15] MEDS: SODIUM CHLORIDE 0.9% 1000ML 1,000 ML IV SCH ×2 (14:53→23:40)
[2022-07-16 07:21] LABS: Basophils # (auto) 0.02 K/uL (0-0.2); Basophils % (auto) 0.2 %; Eosinophils # (auto) 0.08 K/uL (0-0.50); Eosinophils % (auto) 0.7 %; Hematocrit (blood only) 24.5 % (37.0-47.0); Hemoglobin 8.1 g/dl (12.0-16.0); Immature Granulocytes # (auto) 0.14 K/uL (0.01-0.20); Immature Granulocytes % (auto) 1.3 %; Lymphocytes # (auto) 1.91 K/uL (1.2-3.4); Lymphocytes % (auto) 17.5 %; Mean Corpuscular Hemoglobin 26.7 pg (25.0-34.0); Mean Corpuscular Hgb Conc 33.1 g/dL (32.0-36.0); Mean Corpuscular Volume 80.9 fL (80.0-100.0); Mean Platelet Volume 11.5 fL (9.4-12.4); Monocytes # (auto) 0.61 K/uL (0.11-0.59); Monocytes % (auto) 5.6 %; Neutrophils # (auto) 8.15 K/uL (1.40-6.50); Neutrophils % (auto) 74.7 %; Platelet Count 250 K/uL (130-400); RDW Coefficient of Variation 13.8 % (11.5-14.5); RDW Standard Deviation 40.8 fL (36.4-46.3); Red Blood Count 3.03 M/uL (4.20-5.40); White Blood Count 10.91 K/ul (4.8-10.8)
--- NOTE | 2022-07-16 07:32 | XRay Report ---
XR chest 1V portable CLINICAL HISTORY: Desaturations. COMPARISON STUDY: Chest radiograph July 14, 2022. FINDINGS: Small bilateral pleural effusions have increased. Associated bibasilar opacities have also increased. Suspected pulmonary edema persists. Cardiac size is normal. Mediastinal contours are noreen l. IMPRESSION: 1. Increase in small bilateral pleural effusions with associated bibasilar opacities which could refl ect pneumonia or atelectasis. 2. Persistent suspected pulmonary edema. ACT 112: Negative or not required by law. Electronically signed by: Caio Aparicio M.D. 07/16/2022 7:30 AM
[2022-07-16 08:18] LABS: Alanine Aminotransferase 19 U/L (7-52); Albumin Globulin Ratio 0.8 (0.9-2); Albumin Level 2.5 gm/dl (3.4-5.0); Alkaline Phosphatase 67 U/L (34-104); Anion Gap 6 (3-11); Aspartate Aminotransferase 28 U/L (13-39); BUN Creatinine Ratio 10.9 (10-20); Bilirubin,Total 0.9 mg/dl (0.2-1.0); Blood Urea Nitrogen 6 mg/dl (6-23); C Reactive Protein 24.04 mg/dl (0-0.5); Calcium 8.1 mg/dl (8.5-10.1); Carbon Dioxide 23 mmol/L (21-32); Chloride 108 mmol/L (98-107); Creatinine Clr Calc Pharmacy 115.2 ml/min; Est GFR (African American) > 150.0 ml/min; Est GFR (Non-African American) 133.1 ml/min; Globulin 3.3 gm/dl (2.5-4.0); Glucose 80 mg/dl (70-99(Fasting)); Potassium 4.1 mmol/L (3.5-5.1); Sodium 137 mmol/L (136-145); Total Protein 5.8 gm/dl (6.0-8.3)
--- NOTE | 2022-07-16 08:59 | Hospitalist Progress Note ---
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 Patient was evaluated at [facility] and was rx Zofran. Patient states the zofran helped with the nausea and vomiting but she continued to have dysuria and then began to have severe stabbing abdominal pain and decided to come to [facility] ER. CTAP revealed changes of pyelonephritis along with incidental large right ovarian dermoid cyst, and hepatic steatosis. - Ceftriaxone 2g IV daily - Urine and blood cultures - E Coli and pansensitive - Repeat urine culture pending - Repeat blood cultures no growth at 24 hours - Tylenol 650mg po q 4 hours prn - Morphine sulfate 1mg q 4hours prn - Toradol 15mg prn - Continue Cintron catheter - Renal ultrasound revealed changes c/w pyelonephritis, trace pleural effusions and 6cm right ovarian dermoid (2) Sepsis: Plan: - Meets SIRS criteria with temperature, heart rate and white blood count. - WBC improving 10.9 (13.5) - Lactate 0.8 (1.0) - CRP 24.04 (27.98) - Procalcitonin 9.23 (21.31) (38.26) - Continue IV ceftriaxone 2gm - Tylenol 650 q 4 hours as needed - Continue to monitor vitals and labs - IVFs stopped (3) Pulmonary edema: Plan: - Mild desaturation last night, IVF decreased to 50/hr and stopped today - Repeat CXR this AM with increase in bilateral pleural effusions and persistent suspected pulmonary edema - Continue Cintron - Measure I&O - Echo revealed Left ventricular systolic function is normal Normal diastolic function Right ventricular systolic pressure is normal Moderate size left pleural effusion No significant valvular heart disease EF 55-60% - hope that patient will be able to diurese on her own, if pulmonary edema/effusion continues may consider lasix (4) Hyperbilirubinemia: Plan: - improving - RUQ U/S revealed contracted gallbladder containing sludge with normal CBD - Hepatic steatosis on CTAP - Discussed diet and weight loss (5) Dermoid cyst of right ovary: Plan: - Spoke with [facility] gynecology Dr Varghese Venegas (group who is communications assistant for unassigned gyne) who stated patient will need outpatient follow up after discharged from the hospital. - Advised patient of the 6cm right ovarian dermoid cyst seen on CTAP and U/S, discussed need for gynecology evaluation as outpatient. (6) Constipation: Plan: - encourage up and OOB - Increase po fluid intake - miralax 17gm as needed Plan VTE prophylaxis - low risk but higher with current illness/sepsis Treat with Lovenox 40 in AM Diet - regular Disposition - admit to [facility] Encourage up and out of bed, continue incentive spirometry Admission and Anticipated Discharge Date Admission Date: July 13, 2022 Subjective Patient is awake in bed. She states she still is short of breath but feels her cough has improved. She denies any nausea or vomiting. She has a normal appetite but does not like the food in the hospital. She has not had a BM since the day of admission. Review of Systems Constitutional: + fever, + chills and + fatigue; no weight loss and no weight gain Ear, Nose, Mouth, Throat: no nasal congestion, no nasal discharge and no post nasal drip Respiratory: no chest congestion, no dyspnea and no pain on inspiration Cardiovascular: no chest pain, no dyspnea and no syncope Gastrointestinal: + abdominal pain; no nausea, no vomiting, no constipation, no diarrhea/loose stools and no blood in stools Genitourinary: no dysuria, no difficulty urinating, no urinary frequency, no urinary hesitancy, no abnormal periods, no vaginal discharge and no pelvic pain Had dysuria last week Integumentary: no rash, no lesions and no new lesions Neurologic: no gait abnormality, no falls, no loss of sensation and no syncope Psychiatric: no hopelessness, no change in appetite and no panic attacks Physical Exam Constitutional: well nourished, + well hydrated and cooperative Patient does appear more comfortable and alert today compared with the previous 48 hours Neck: trachea midline; no neck crepitus, neck nontender and no nuchal rigidity Thyroid: normal thyroid Respiratory: normal respiratory effort, lungs clear to auscultation Cardiovascular: RRR, no murmur, no edema Heart Sounds: normal S1 and normal S2; no murmur Vessels: normal peripheral pulses; no JVD and no carotid bruit Extremities: normal capillary refill; no calf tenderness and no edema Gastrointestinal (Abdomen): Inspection/Auscultation: + abdomen distended and normal bowel sounds; no abdominal surgical scar Percussion/Palpation: + abdomen tender and abdomen soft; no hepatosplenomegaly Skin: no rashes, warm and dry Neurologic: patellar DTR's 2+ bilat, sensation intact and PERRL, EOMI, accommodation nl, no face palsy, no dysarthria Psychiatric: A+Ox3, euthymic affect Lymphatic: no cervical or axillary lymphadenopathy no preauricular lymphadenopathy, no cervical lymphadenopathy, no subclavicular lymphadenopathy, no axillary lymphadenopathy and no inguinal lymphadenopathy Results & Data Results & Data ([facility]) Vital Signs (Past 12 Hours) Vital Signs Temp Pulse Resp BP Pulse Ox O2 Del Method 07/16/22 07:18 38 C H 102 H 20 109/76 92 Room Air 07/16/22 05:54 37.8 C H 95 Room Air 07/15/22 23:00 37 C 98 H 18 103/72 94 Room Air 07/15/22 21:16 37.2 C 106 H 99/65 L 90 Room Air Laboratory Results Abnormal lab results 07/15/22 07/15/22 07/15/22 Range/Units 08:20 08:25 08:25 WBC (4.8-10.8) K/ul RBC (4.20-5.40) M/uL Hgb (12.0-16.0) g/dl Hct (37.0-47.0) % Neut # (Auto) (1.40-6.50) K/uL [place] # (Auto) (0.11-0.59) K/uL Chloride (98-107) mmol/L Creatinine (0.6-1.2) mg/dl Calcium (8.5-10.1) mg/dl C-Reactive Protein 27.98 H (0-0.5) mg/dl Total Protein (6.0-8.3) gm/dl Albumin (3.4-5.0) gm/dl Albumin/Globulin Ratio (0.9-2) Procalcitonin 21.31 H (0-0.5) ng/ml Urine Protein 1+ H (Negative) Urine Ketones 2+ H (Negative) Urine Urobilinogen Positive H (Negative) Ur Leukocyte Esterase Trace H (Negative) Urine WBC (Auto) 5-10 H (0-5) /hpf Urine RBC (Auto) 5-10 H (0-4) /hpf U Epithel Cells (Auto) >30 H (0-5) /lpf 07/16/22 07/16/22 07/16/22 Range/Units 06:41 06:41 06:41 WBC 10.91 H (4.8-10.8) K/ul RBC 3.03 L (4.20-5.40) M/uL Hgb 8.1 L (12.0-16.0) g/dl Hct 24.5 L (37.0-47.0) % Neut # (Auto) 8.15 H (1.40-6.50) K/uL [place] # (Auto) 0.61 H (0.11-0.59) K/uL Chloride 108 H (98-107) mmol/L Creatinine 0.55 L (0.6-1.2) mg/dl Calcium 8.1 L (8.5-10.1) mg/dl C-Reactive Protein 24.04 H (0-0.5) mg/dl Total Protein 5.8 L (6.0-8.3) gm/dl Albumin 2.5 L (3.4-5.0) gm/dl Albumin/Globulin Ratio 0.8 L (0.9-2) Procalcitonin 9.23 H (0-0.5) ng/ml Urine Protein (Negative) Urine Ketones (Negative) Urine Urobilinogen (Negative) Ur Leukocyte Esterase (Negative) Urine WBC (Auto) (0-5) /hpf Urine RBC (Auto) (0-4) /hpf U Epithel Cells (Auto) (0-5) /lpf Diagnostic Findings Chest X-Ray 07/16/22 07:16 XR chest 1V portable CLINICAL HISTORY: Desaturations. COMPARISON STUDY: Chest radiograph July 14, 2022. FINDINGS: Small bilateral pleural effusions have increased. Associated bibasilar opacities have also increased. Suspected pulmonary edema persists. Cardiac size is normal. Mediastinal contours are normal. IMPRESSION: 1. Increase in small bilateral pleural effusions with associated bibasilar opacities which could reflect pneumonia or atelectasis. 2. Persistent suspected pulmonary edema. ACT 112: Negative or not required by law. Electronically signed by: Caio Aparicio M.D. 07/16/2022 7:30 AM PG Care Time/CCT Total # of Minutes Spent Total Time Spent with Patient: Total time spent is greater than 50% in coordination of care (as documented) at patient's floor/unit and/or counseling patient: Coding Level of Care Code 46146 SUB INP/OBS CARE 235MIN Diagnoses Acute pyelonephritis N10 Sepsis A41.9 Pulmonary edema J81.1 Hyperbilirubinemia E80.6 Dermoid cyst of right ovary D27.0 Constipation K59.00
[2022-07-16] MEDS: POTASSIUM CHLORIDE CRTAB 20 MEQ TABCR PO SCH ×2 (09:12→13:43)
[2022-07-16] MEDS: ENOXAPARIN INJ 40 MG/0.4 ML SYR SQ SCH (09:13)
[2022-07-16] MEDS: cefTRIAXone SODIUM 2,000 MG in DEXTROSE 5% 50 ML IV SCH (09:13)
--- NOTE | 2022-07-16 10:16 | XCELERA ---
[id number]
[2022-07-16] MEDS ORDERED: POLYETHYLENE (MIRALAX) 17 GM PACK PO PRN (15:12)
[2022-07-17 07:57] LABS: Basophils # (auto) 0.03 K/uL (0-0.2); Basophils % (auto) 0.4 %; Eosinophils # (auto) 0.18 K/uL (0-0.50); Eosinophils % (auto) 2.1 %; Hematocrit (blood only) 27.2 % (37.0-47.0); Immature Granulocytes # (auto) 0.33 K/uL (0.01-0.20); Immature Granulocytes % (auto) 3.9 %; Lymphocytes # (auto) 2.24 K/uL (1.2-3.4); Lymphocytes % (auto) 26.4 %; Mean Corpuscular Hemoglobin 26.7 pg (25.0-34.0); Mean Corpuscular Hgb Conc 33.1 g/dL (32.0-36.0); Mean Corpuscular Volume 80.7 fL (80.0-100.0); Mean Platelet Volume 10.5 fL (9.4-12.4); Monocytes # (auto) 0.59 K/uL (0.11-0.59); Monocytes % (auto) 6.9 %; Neutrophils # (auto) 5.12 K/uL (1.40-6.50); Neutrophils % (auto) 60.3 %; Platelet Count 395 K/uL (130-400); RDW Coefficient of Variation 13.8 % (11.5-14.5); RDW Standard Deviation 40.4 fL (36.4-46.3); Red Blood Count 3.37 M/uL (4.20-5.40); White Blood Count 8.49 K/ul (4.8-10.8)
[2022-07-17] MEDS: ENOXAPARIN INJ 40 MG/0.4 ML SYR SQ SCH (07:59)
[2022-07-17 08:42] LABS: Albumin Level 2.7 gm/dl (3.4-5.0); Anion Gap 6 (3-11); Bilirubin,Total 0.8 mg/dl (0.2-1.0); Calcium 8.6 mg/dl (8.5-10.1); Carbon Dioxide 25 mmol/L (21-32); Chloride 104 mmol/L (98-107); Potassium 4.4 mmol/L (3.5-5.1); Sodium 135 mmol/L (136-145)
[2022-07-17 08:47] LABS: Alanine Aminotransferase 37 U/L (7-52); Albumin Globulin Ratio 0.7 (0.9-2); Alkaline Phosphatase 85 U/L (34-104); Aspartate Aminotransferase 61 U/L (13-39); BUN Creatinine Ratio 9.6 (10-20); Blood Urea Nitrogen 5 mg/dl (6-23); Creatinine Clr Calc Pharmacy 121.9 ml/min; Est GFR (African American) > 150.0 ml/min; Est GFR (Non-African American) 135.6 ml/min; Globulin 3.7 gm/dl (2.5-4.0); Glucose 84 mg/dl (70-99(Fasting)); Total Protein 6.4 gm/dl (6.0-8.3)
[2022-07-17] MEDS: cefTRIAXone SODIUM 2,000 MG in DEXTROSE 5% 50 ML IV SCH (09:19)
--- NOTE | 2022-07-17 13:34 | XRay Report ---
XR chest 2V PA/lateral HISTORY: Desaturation. repeat to compare to previous COMPARISON: Chest 07/16/2022. FINDINGS: No pneumothorax. Small bilateral pleural effusions and bibasilar densities have improved. M ild pulmonary edema has also improved. No new focal lung consolidations identified. The heart is norm al in size. IMPRESSION: Interval improvement in the mild pulmonary edema and small bilateral pleural effusions/densities. ACT 112: Negative or not required by law. Electronically signed by: Peterson Carter M.D. 07/17/2022 1:32 PM
--- NOTE | 2022-07-17 14:55 | Discharge Summary ---
Date of Service July 17, 2022 Admission HPI Per Admitting Provider Adamaris Blake is a 21-year-old female who presents to the ER with nausea, vomiting and fever for 1 week. She reports urine has been smelling different with associated bilateral back pain (generalized, severity 4/10, no radiation, no change with bowel movements). She denies any urine frequency or burning sensation. No pertinent past medical history. No frequent UTIs. No upper respiratory symptoms, abdominal pain or diarrhea. Admission Exam Per Admitting Provider Constitutional: WD/WN, vitals as above ENMT: external ear and nose normal, oropharynx normal Respiratory: normal respiratory effort, lungs clear to auscultation Cardiovascular: Rate/Rhythm: regular rhythm and + tachycardic Gastrointestinal (Abdomen): normal bowel sounds, soft, nontender, no hepatosplenomegaly Skin: no rashes, warm and dry Genitourinary: + CVA tenderness (Bilateral) Principal Diagnosis gram negative sepsis bilateral pyelonephritis pulmonary edema Discharge Exam Constitutional well nourished, + well hydrated and cooperative; no acute distress Neck trachea midline, no thyromegaly trachea midline; no neck crepitus, neck nontender and no nuchal rigidity Thyroid: normal thyroid Respiratory normal respiratory effort; no respiratory distress and no labored breathing mild decrease at left base, no wheeze, rhonchi or rales Cardiovascular RRR, no murmur, no edema Heart Sounds: normal S1 and normal S2; no murmur Vessels: normal peripheral pulses; no JVD and no carotid bruit Extremities: normal capillary refill; no calf tenderness and no edema Gastrointestinal (Abdomen) Inspection/Auscultation: + abdomen distended and normal bowel sounds; no abdominal surgical scar Percussion/Palpation: + abdomen tender and abdomen soft; no hepatosplenomegaly Skin no rashes, warm and dry Neurologic patellar DTR's 2+ bilat, sensation intact and PERRL, EOMI, accommodation nl, no face palsy, no dysarthria Psychiatric A+Ox3, euthymic affect Lymphatic no cervical or axillary lymphadenopathy no preauricular lymphadenopathy, no cervical lymphadenopathy, no subclavicular lymphadenopathy, no axillary lymphadenopathy and no inguinal lymphadenopathy Discharge Data Allergies Allergy/AdvReac Type Severity Reaction Status Date / Time No Known Allergies Allergy Verified 07/13/22 13:29 Consultations 07/13/22 15:55 ED Decision to Admit Stat Ordered Studies 07/13/22 13:47 CT abd pelvis IV con only Stat FINDINGS: Lower chest: No acute abnormality. Liver: Hepatic steatosis is noted. Gallbladder and biliary tree: No calcified gallstones. Normal caliber wall. No intra- or extrahepatic biliary ductal dilation. Pancreas: Unremarkable, no focal lesions. Spleen: Unremarkable. Adrenals: Unremarkable. Kidneys and ureters: Wedge-shaped hypoenhancing lesions are seen in the left greater than right kidneys. Bladder: Unremarkable. Reproductive organs: A large right fat-containing adnexal lesion with some calcifications is seen compatible with dermoid cyst. A smaller lesion is seen on the left. Bowel: Unremarkable. Lymph nodes Retroperitoneal: Unremarkable. Pelvic: Unremarkable. Mesenteric: Subcentimeter lymph nodes are noted. Peritoneum: Normal. Vessels: Unremarkable. Abdominal wall: Unremarkable. Bones: Unremarkable. IMPRESSION: Wedge-shaped hypodensities in the bilateral kidneys are concerning for pyelonephritis. 07/15/22 07:57 US Renal Bladder [US renal/blad retro comp] Urgent IMPRESSION: 1. Patchy areas of increased echogenicity within the kidneys consistent with a pyelonephritis. 2. Trace bilateral pleural effusions. 3. A 6 cm right ovarian dermoid again noted. 07/15/22 08:00 US RUQ [US liver] Urgent ABDOMINAL ULTRASOUND, RIGHT UPPER QUADRANT HISTORY: elevated bilirubin. COMPARISON: Abdomen and pelvis CT 07/13/2022. FINDINGS: Pancreas: The pancreas demonstrates a normal echotexture. Liver: A 2.3 cm hyperechoic focus within the left hepatic lobe adjacent to the falciform ligament consistent with an area of focal fat. No hepatic masses. Gallbladder: The gallbladder is contracted. No gallbladder wall thickening. There is sludge within the gallbladder. No gallstones. CBD: 3 mm. Right kidney: No hydronephrosis. IMPRESSION: 1. Contracted gallbladder containing sludge. 2. Normal caliber common bile duct. 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 Patient was evaluated at [facility] and was rx Zofran. Patient states the zofran helped with the nausea and vomiting but she continued to have dysuria and then began to have severe stabbing abdominal pain and decided to come to [facility] ER. CTAP revealed changes of pyelonephritis along with incidental large right ovarian dermoid cyst, and hepatic steatosis. - Ceftriaxone 2g IV daily (had 4 doses/days) - Urine and blood cultures - E Coli and pansensitive - Repeat urine culture pending - Repeat blood cultures no growth at 48 hours - Renal ultrasound revealed changes c/w pyelonephritis, trace pleural effusions and 6cm right ovarian dermoid (2) Sepsis: - Meets SIRS criteria with temperature, heart rate and white blood count. - WBC improving 10.9 (13.5) - Lactate 0.8 (1.0) - CRP 24.04 (27.98) - Procalcitonin 9.23 (21.31) (38.26) - Continue IV ceftriaxone 2gm - Tylenol 650 q 4 hours as needed - Continue to monitor vitals and labs - IVFs stopped (3) Pulmonary edema: - Mild desaturation last night, IVF decreased to 50/hr and stopped today - Repeat CXR this AM with increase in bilateral pleural effusions and persistent suspected pulmonary edema - Continue Cintron - Measure I&O - Echo revealed Left ventricular systolic function is normal Normal diastolic function Right ventricular systolic pressure is normal Moderate size left pleural effusion No significant valvular heart disease EF 55-60% - hope that patient will be able to diurese on her own, if pulmonary edema/effusion continues may consider lasix (4) Hyperbilirubinemia: - improving - RUQ U/S revealed contracted gallbladder containing sludge with normal CBD - Hepatic steatosis on CTAP - Discussed diet and weight loss (5) Dermoid cyst of right ovary: - Spoke with [facility] gynecology Dr Varghese Venegas (group who is web production manager for unassigned gyne) who stated patient will need outpatient follow up after discharged from the hospital. - Advised patient of the 6cm right ovarian dermoid cyst seen on CTAP and U/S, discussed need for gynecology evaluation as outpatient. - Patient stated she would rather see gyne through [facility] because it would be easier for her to get to that appointment. (6) Constipation: - encourage to continue to be active and get adequate po fluid intake - miralax 17gm as needed Plan Discharge back to [employer] today School excuse given Needs appt with [facility] gyne for exam and follow up of the right ovarian dermoid cyst found on imaging Total Time Total Time Spent Total Time Spent (In Minutes): 45 Discharge Plan Discharge Items Patient Disposition: Home - Self-Care Reason For Visit: SEPSIS, PYELONEPHRITIS Discharge Diagnosis: sepsis and bilateral pyelonephritis Condition on Discharge: Good Activity: Resume your previous activity Lifting: Gradually increase as tolerated Exercise/Sports: Gradually increase as tolerated Driving/Machine Use: Resume 1 day after discharge Weightbearing: Full weightbearing Non-emergency contact: Primary Care Provider Call non-emergency contact if: you have any medication questions, your symptoms worsen and you have a fever Follow-up/Referrals: [place] [Primary Care Provider] - Diet: Regular Addtl Attending Provider Instructions: You were admitted with abdominal pain, fever and found to have bilateral kidney infection. Your kidney infection was also found to be in your blood stream. This infection into the blood stream is known as sepsis. You were very ill and then also developed fluid into your left lung. You were treated with IV antibiotics. You also had multiple chest xrays to visualize the fluid in your lungs and finally today 07/17/22 your body began to reabsorb the fluid and your lungs are improving with less fluid. You also had an echo which was an u/s of your heart. Which revealed normal functioning of your heart and valves. You incidently were found to have a rather large cyst in your right ovary. This cyst is likely a dermoid cyst and measured 6 cm. Gynecology here were notified and stated that you needed utpatient follow up and gyne exam to evaluate this further. [facility] gyne stated they were available to see you as an outpatient but you decided it would be easier for you to be evaluated by [facility] gyne. Case management here at [facility] will set up your appt with them You also had some mild elevation of LFTs that returned to normal. You had a CT and U/S of your abdomen. Your gallbladder was evaluated and was normal. That revealed some fatty liver. Discussed diet and exercise. You will need to start your antibiotics tomorrow morning. You will need to take them one pill 2 times per day and NEED to finish all 10 days (20 pills) Pending Studies at Discharge: Yes Studies:: repeat blood cultures are negative at 48 hours but are still preliminary Stand-Alone Forms: My [facility], Work/School Release Medications and DC Order Prescriptions: New cefdinir 300 mg capsule 300 mg PO BID 10 Days Qty: 20 0RF Discharge Orders: Discharge Order (Routine); Ordered 07/17/22 Ordered By: Dena Smiht/Other Patient Handouts: Ovarian Cysts, Understanding Sepsis, Understanding Ovarian Cysts, ED Bacteremia, Suspected (Adult), Pyelonephritis Ch Admission Data Admit Date/Time: 07/13/22 16:20 Attending Provider: Carlos Enrique Maier Admit Provider: Tobin Morel Primary Care Provider: [facility] Other Providers: Tobin Morel Coding Level of Care Code HOSP INP/OBS DISCH >30 MIN Diagnoses Acute pyelonephritis N10 Sepsis A41.9 Pulmonary edema J81.1 Hyperbilirubinemia E80.6 Dermoid cyst of right ovary D27.0 Constipation K59.00
== END 2022-07-17 16:05 | disposition home or self-care (01) | DRG 872 ==
LOC: ED 11:19 → SUATTDRO 16:20 → 3W 16:20